=== PATIENT | male | born 1970 ===

== ENCOUNTER 2018-05-24 00:24 | Emergency (ER) | payer SELFPAY ==
[2018-05-24 00:48] VITALS: TEMP 97.5
[2018-05-24] MEDS ORDERED: Lidocaine/Epi 1% 1:100000 20 ML IJ ONE (01:43)
[2018-05-24] MEDS ORDERED: Povidone Iodine Oint 10% Foilpak UD ONE (01:50)
[2018-05-24] MEDS ORDERED: Lidocaine 1% w Epi 1:100,000 Inj ONE (01:50)
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
[2018-05-24] MEDS ORDERED: Tdap Vaccine 0.5 ml Vial (10-64 yrs) IM ONE ×2 (02:57→03:39)
[2018-05-24 05:24] VITALS: BP 123/73; PULSE 97; RESP 19
[2018-05-24 05:34] VITALS: O2SAT 95
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
== END 2018-05-24 05:30 ==
LOC: H.ER 00:24
DX: S01.81XA Laceration without foreign body of other part of head, initial encounter (principal); Y04.0XXA Assault by unarmed brawl or fight, initial encounter; Y92.89 Other specified places as the place of occurrence of the external cause
CPT/HCPCS: 12011; 70450; 70486; 71100; 82948; 90471; 90715; 99285; G0480